=== PATIENT | female | born 1985 | race Caucasian/White ===

== ENCOUNTER → 2019-02-25 | Outpatient (CLI) | payer MEDICAID ==
[2019-02-25 15:24] LABS: BASO # 0.1 x10^3/uL (0.0-0.2); BASO % 0 % (0-3); EOS # 0.2 x10^3/uL (0.0-0.7); EOS % 1 % (0-3); HEMATOCRIT 41.8 % (36.0-47.0); HEMOGLOBIN 14.2 g/dL (12.0-15.5); LYMPH # 2.7 x10^3/uL (1.0-4.8); LYMPH % 17 % (24-48); MEAN CORPUSCULAR HEMOGLOBIN 27 pg (25-35); MEAN CORPUSCULAR HGB CONC 34 g/dL (31-37); MEAN CORPUSCULAR VOLUME 80 fL (79-100); MONO # 0.8 x10^3/uL (0.0-1.1); MONO % 5 % (0-9); NEUT # 12.2 x10^3uL (1.8-7.7); NEUT % 77 % (31-73); PLATELET COUNT 512 x10^3/uL (140-400); RED BLOOD COUNT 5.22 x10^6/uL (3.50-5.40); RED CELL DISTRIBUTION WIDTH 14.7 % (11.5-14.5); WHITE BLOOD COUNT 15.9 x10^3/uL (4.0-11.0)
[2019-02-25 15:52] LABS: BARBITURATES POS (NEG); BENZODIAZEPINES NEG (NEG); CANNABINOIDS POS (NEG); COCAINE NEG (NEG); METHADONE NEG (NEG); OPIATES NEG (NEG); PHENCYCLIDINE NEG (NEG)
[2019-02-25 15:54] LABS: ALBUMIN 3.6 g/dL (3.4-5.0); ALBUMIN/GLOBULIN RATIO 0.7 (1.0-1.7); AMPHETAMINE/METHAMPHETAMINE NEG (NEG); CALCIUM 9.3 mg/dL (8.5-10.1); GFR 63.1; POTASSIUM 4.3 mmol/L (3.5-5.1); TOTAL BILIRUBIN 0.2 mg/dL (0.2-1.0); TOTAL PROTEIN 8.9 g/dL (6.4-8.2)
== END | disposition home or self-care (01) ==
LOC: LAB 15:05
PROVIDERS: ATTEND Psychiatry & Neurology Neurology
DX: G93.2 Benign intracranial hypertension (principal)
CPT/HCPCS: 36415; 80053; 80307; 82550; 84443; 85025; 85610; 85651

== ENCOUNTER → 2019-03-10 | Outpatient (CLI) | payer MEDICAID ==
[~2019-03-10] MED LIST: GADOTERATE 7.5 MMOL/15ML VIAL. IVP ONE
--- NOTE | 2019-03-10 13:17 | RAD ---
BRAIN WO/W CONTRAST Date: 03/10/2019 9:00 AM Indication: Migraines, history of arachnoid cyst Comparison: None. Technique: Multiplanar multisequence MRI of the brain was performed with and without intravenous contrast using the standard protocol. 29 cc Dotarem contrast was administered intravenously during the exam. Findings: No acute infarct. No acute or chronic hemorrhage. The ventricles are normal in size and configuration without hydrocephalus. No abnormal enhancement. The scalp and calvarium are normal. The pituitary and sella are normal. No Chiari malformation. The visualized upper cervical spine is normal. The visualized orbits and globes are normal. Mild mucosal thickening in the left maxillary sinus alveolar recess. The mastoid air cells are clear. Normal flow voids within the vertebral, basilar, and internal carotid arteries indicating patency. IMPRESSION: 1. No acute infarct or hemorrhage. 2. No mass or abnormal enhancement. Electronically signed by: Lex Alvarenga MD (03/10/2019 1:14 PM) [id number]
== END | disposition home or self-care (01) ==
LOC: MRI 08:28
PROVIDERS: ATTEND Psychiatry & Neurology Neurology
DX: G93.2 Benign intracranial hypertension (principal); G93.0 Cerebral cysts; G43.909 Migraine, unspecified, not intractable, without status migrainosus
CPT/HCPCS: 70553; A9575

== ENCOUNTER → 2019-03-31 | Outpatient (CLI) | payer MEDICAID ==
[~2019-03-31] MED LIST changes: +FIORICET PO; -GADOTERATE 7.5 MMOL/15ML VIAL. IVP ONE; +HYDR-3164 PO; +METO50TA6 PO; +SUMA50TA3 PO
[2019-03-31 09:53] VITALS: BP 141/85
--- NOTE | 2019-03-31 09:58 | RAD ---
Lumbar puncture with fluoroscopic guidance Clinical information: Migraines, headaches, pseudotumor cerebri Procedure: The procedure and risks of the procedure were explained to the patient. Informed consent was obtained. The patient was placed in the prone position and was prepped and draped sterilely. The skin and overlying soft tissues were infiltrated with lidocaine for local anesthesia. A lumbar puncture was then performed at the level of L3-4 using a 20 gauge spinal needle and a paramedian interlaminar approach. The opening pressure measured 10 cm of water. 17 cc of clear csf were collected in sterile vials. The needle was removed. The patient tolerated the procedure well without immediate complications. The estimated blood loss was 0 cc. Procedure performed by: Dr. Steve Nobles. The specimen was sent to the lab. IMPRESSION: Successful lumbar puncture with fluoroscopic guidance. The opening pressure measured 10 cm of water. 17 Cc of clear csf were collected. See complete discussion above. Electronically signed by: Glen Nobles MD (03/31/2019 9:55 AM) [facility]
[2019-03-31 10:18] VITALS: BP 146/84
[2019-03-31 10:24] LABS: CSF CLARITY CLEAR; CSF COLOR COLORLESS; CSF RBC COUNT 2 /cmm (Not Established); CSF WBC COUNT 0 /cmm (Not Established)
[2019-03-31 10:53] VITALS: BP 128/78
[2019-03-31 11:25] VITALS: BP 122/80
[2019-03-31 11:45] VITALS: BP 144/77
--- NOTE | 2019-03-31 11:45 | NUR ---
Discharge Note: RAUL CALL Discharge instructions and discharge home medications reviewed with Patient and a copy given. All questions have been answered and understanding verbalized. The following instructions and handouts were given: Lumbar puncture, encouraged pt to hydrate well. Dressing to back dry and intact. Patient discharged to home with family via wheelchair. SHARLENE RECIO
[2019-04-02 12:10] LABS: HERPES SIMPLEX TYPE 1 Negative (Negative); HERPES SIMPLEX TYPE 2 Negative (Negative); WEST NILE IGG CSF Negative (Negative); WEST NILE IGM CSF Negative (Negative)
[2019-04-09 09:15] LABS: VIRAL CULT FINAL No virus isolated. (.)
== END ==
LOC: RAD 08:33
PROVIDERS: ATTEND Psychiatry & Neurology Neurology
DX: G43.909 Migraine, unspecified, not intractable, without status migrainosus (principal)
CPT/HCPCS: 62270; 77003; 82945; 86788; 86789; 87071; 87075; 87102; 87252; 87529; 89051

== ENCOUNTER 2019-04-09 08:50 | Day surgery (SDC) | payer MEDICAID ==
[~2019-04-09 08:50] MED LIST changes: +BUPIVACAINE MPF 0.5% 30 ML VIAL. IJ ONE; +BUPIVACAINE-EPI 0.5%-1:200000 MPF 30 ML VIAL. INJ ONE; -HYDR-3164 PO; +ceFAZolin SODIUM 3 GM in IV DEXTROSE 5% 100ML 100 ML IV PRN
[2019-04-09] MEDS ORDERED: IV RINGERS,LACTATED 1000ML 1,000 ML IV SCH ×2 (10:00→12:00)
[2019-04-09] MEDS ORDERED: MIDAZOLAM HCL/PF 2 MG/2 ML VIAL. ONE (10:23)
[2019-04-09] MEDS ORDERED: fentaNYL PF VIAL 100 MCG/2 ML VIAL ONE ×2 (10:24→11:59)
[2019-04-09] MEDS ORDERED: SUCCINYLCHOLINE 200 MG/10 ML VIAL. ONE (10:25)
[2019-04-09] MEDS ORDERED: DEXAMETHASONE SOD PHOS 4 MG/ML VIAL ONE (10:44)
[2019-04-09] MEDS ORDERED: LIDOCAINE 2% PF 5 ML VIAL. ONE (10:44)
[2019-04-09] MEDS ORDERED: ONDANSETRON PF 4 MG/2 ML VIAL. ONE (10:44)
[2019-04-09] MEDS ORDERED: PROPOFOL 20 ML IV ONE ×2 (10:44→10:45)
[2019-04-09] MEDS ORDERED: SEVOFLURANE 31 TO 60 MINUTES. IH ONE (11:16)
--- NOTE | 2019-04-09 11:50 | PDOC4 ---
Operative Note Operative Note Operative Note: Preoperative Diagnosis: Left temporal headache Postoperative Diagnosis: Same Procedure: Left temporal artery biopsy Surgeon: Carter Anesthesia: Gen EBL: 10 ml Specimen: L temporal artery to pathology Drains: None Complications: None Indication: The patient is a 33 year old female who has been experiencing left temporal headaches. During her evaluation her sed rate was noted to be elevated. She was referred for a left temporal artery biopsy. The risks of surgery were discussed which include bleeding, infection, facial branch nerve i njury, anesthetic risk, potential need for additional surgeries or procedures. She understands and would like to proceed. Description: The patient was taken to the OR and laid supine on the operative table. General anesthesia was performed. The left temporal area was shaved and prepped with betadine and draped in a standard surgical fashion. The course of the left temporal artery was marked. An incision was made with a scalpel along the marking. Sharp dissection was carried down to the subcutaneous tissues. The temporal artery was identified and dissected free. The proximal and distal portions of the visualized artery were ligated with 3-0 vicryl. The middle segment was then excised and sent to pathology in formalin. Hemostasis was good. The subcutaneous tissue was approximated with 3-0 vicryl. The skin was approximated with 4-0 monocryl. The incision was infiltrated with 0.5% Marcaine and a steristrip was applied. The patient tolerated the procedure well and was sent to the PACU in stable condition. At the end of the case all counts were correct. ALEXEI PAREDES MD Apr 09, 2019 11:50
--- NOTE | 2019-04-09 11:52 | DISCH ---
DISCHARGE INSTRUCTIONS Condition on Discharge Condition on Discharge: Stable Activity After Discharge Activity Instructions for Disc: Activity as tolerated Diet after Discharge Diet after Discharge: Regular Wound Incision Care Wound/Incision Care: Other, see below (keep incision clean and dry X 72 hours, may then shower; the steristrip will fall off on its own) Follow-Up Follow up with: Dr Paredes in 2 weeks in office; call for appt [phone] ALEXEI PAREDES MD Apr 09, 2019 11:52
[2019-04-09] MEDS ORDERED: PROCHLORPERAZINE 10 MG/2 ML VIAL. ONE (11:59)
[2019-04-09] MEDS ORDERED: HYDROcodone/APAP 5/325MG 1 TAB TABLET PO ONE (12:00)
[2019-04-09] MEDS ORDERED: HYDROmorphone 2 MG/ML VIAL IV PRN (12:00)
[2019-04-09] MEDS ORDERED: HYDROcodone/APAP 5/325MG 1 TAB TABLET PO PRN (12:00)
[2019-04-09] MEDS ORDERED: PROCHLORPERAZINE 10 MG/2 ML VIAL. IV PRN (12:00)
[2019-04-09] MEDS ORDERED: LIDOCAINE 1% PF 2 ML VIAL. ID PRN (12:00)
[2019-04-09] MEDS ORDERED: fentaNYL PF VIAL 100 MCG/2 ML VIAL IV PRN (12:00)
[2019-04-09] MEDS ORDERED: ONDANSETRON PF 4 MG/2 ML VIAL. IV PRN (12:00)
[2019-04-09] MEDS ORDERED: MORPHINE SULFATE 2 MG/ML VIAL. IV PRN (12:00)
[2019-04-09] MEDS: fentaNYL PF VIAL 100 MCG/2 ML VIAL IV PRN ×2 (12:04→12:34)
[2019-04-09] MEDS ORDERED: HYDR-3164 PO (12:08)
[2019-04-09 13:05] VITALS: BP 138/78
--- NOTE | 2019-04-10 22:06 | PATHOLOGY ---
[facility] Accession Number: [id number] . 01 Material submitted: . artery - LEFT TEMPORAL ARTERY BIOPSY. Modifiers: left, temporal . 01 Clinical history: . Migraine headaches . 02 Diagnosis: Left temporal artery biopsy: - No obvious arteritis present. - No obvious atherosclerosis or narrowing seen. 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 02 Electronically signed: . Samuel Giraldo MD, Pathologist NPI- [id number] . 01 Gross description: . The specimen is received in formalin, labeled "Radha Hollingsworth, left temporal artery biopsy", is a choudhury-brown cylindrical segment measuring 1.7 cm in length with an average 0.2 cm diameter. The specimen is entirely submitted in A1 in toto. ([facility]; 04/09/2019) [facility] . 02 Pathologist provided ICD-10: G43.909 . 02 CPT . 546515 Specimen Comment: A courtesy copy of this report has been sent to Specimen Comment: [phone]. Specimen Comment: Report sent to [facility]formed at: [facility] [address], [place] [id number] MD Patrick Espinoza MD Phone: [phone] Performed at: [facility] [address] [place], [place] [id number] MD Sam Boyd MD Phone: [phone]
== END 2019-04-09 13:10 | disposition home or self-care (01) ==
LOC: SURG 08:50
PROVIDERS: ATTEND Surgery
DX: G43.909 Migraine, unspecified, not intractable, without status migrainosus (principal); F32.9 Major depressive disorder, single episode, unspecified; Z98.890 Other specified postprocedural states; Z90.49 Acquired absence of other specified parts of digestive tract; Z72.89 Other problems related to lifestyle; Z88.8 Allergy status to other drugs, medicaments and biological substances
CPT/HCPCS: 37609; 81025; 88305; A7015; J0330; J0780; J1100; J2001; J2250; J2405; J2704; J3010; J7120; 77001; J3490; A4461

== ENCOUNTER → 2019-04-11 | Outpatient (CLI) | payer MEDICAID ==
[2019-04-09 13:05] VITALS: BP 138/78
[~2019-04-11] MED LIST changes: -BUPIVACAINE MPF 0.5% 30 ML VIAL. IJ ONE; -BUPIVACAINE-EPI 0.5%-1:200000 MPF 30 ML VIAL. INJ ONE; +HYDR-3164 PO; -ceFAZolin SODIUM 3 GM in IV DEXTROSE 5% 100ML 100 ML IV PRN
--- NOTE | 2019-04-11 13:22 | EKG ---
[facility] [address] [place] [address] Test Date: 2019-04-11 Test Time: 13:17:19 Pat Name: RAUL CALL Department: Room: Gender: F [employer]: : [id number] Requested By: NETTIE SOMMER Order Number: [id number] Reading MD: Emiliano Dupont MD Measurements Intervals [place] Rate: 83 P: 52 WV: 156 QRS: 46 QRSD: 86 T: 57 QT: 360 QTc: 429 Interpretive Statements SINUS RHYTHM Electronically Signed On 04-11-2019 16:22:41 CDT by Emiliano Dupont MD
== END | disposition home or self-care (01) ==
LOC: EKG 12:56
PROVIDERS: ATTEND Psychiatry & Neurology Neurology
DX: G43.011 Migraine without aura, intractable, with status migrainosus (principal)
CPT/HCPCS: 93005

== ENCOUNTER → 2019-07-14 | Outpatient (CLI) | payer MEDICAID ==
[~2019-07-14] MED LIST changes: +ZOLPIDEM 5 MG TABLET. PO ONE
--- NOTE | 2019-07-15 08:46 | SLEEP ---
DATE OF STUDY: 07/14/2019 OBJECTIVE: The patient is a 33-year-old female with insomnia, restless legs, snoring, fatigue, observed apnea, excessive somnolence, awakening short of breath. Height 5 feet 8 inches, weight 321 pounds, body mass index 49. Chisholm sleep score 11. INTERPRETATION: Sleep architecture is characterized by a sleep efficiency of 83% across the 7.2 hours of recording time. Stage volumes are appropriate. Sleep onset latency is 8.5 minutes. Respiratory monitoring shows a total of 59 events for an apnea-hypopnea index of 9.8 events per hour of sleep. The minimum oxygen saturation is 81%. There is a paradoxical position effect in which the apnea-hypopnea index is higher on the side in the supine position. The patient is started on treatment on this study. At a setting of 12 cm, the apnea-hypopnea index is 0. Periodic limb movements of sleep occurred at the rate of 61 per hour, 13 per hour associated with arousal. No cardiac arrhythmias are observed. IMPRESSION: Abnormal polysomnogram showing obstructive sleep apnea and hypopnea, treatable using 12 cm of CPAP, Respironics DreamWear full face mask, small size. RECOMMENDATIONS: 1. The patient should be started on the CPAP setting. 2. The patient should be counseled to avoid sedatives and alcohol. She should pursue weight loss. Thank you for letting us help with the patient's care. MARTIN RAMOS MD DR: APRYL/elizabteh JOB#: [id number] / [id number]
== END | disposition home or self-care (01) ==
LOC: SLPLAB 19:03
PROVIDERS: ATTEND Psychiatry & Neurology Neurology
DX: G47.33 Obstructive sleep apnea (adult) (pediatric) (principal)
CPT/HCPCS: 95810